=== PATIENT | male | born 1965 | race Caucasian/White ===

== ENCOUNTER 2017-06-26 11:40 | Emergency (ER) | payer OTHER ==
[~2017-06-26] VITALS: Ht 170.2 cm; Wt 72.6 kg
[~2017-06-26 11:40] MED LIST: BACTRIM DS TAB1 EACH PO; HYDROCODON-ACE1 EAC7 PO; KEFLEX500 MG PO; NOHOMEMEDICATIONS; PERCOCET 5-3251 EACH PO
[2017-06-26 12:33] LABS: INFLUENZA A ANTIGEN None Detected (None Detect); INFLUENZA B ANTIGEN None Detected (None Detect)
[2017-06-26 12:33] LABS: ABSOLUTE BASOPHILS 0.1 thou/uL (0.0-0.2); ABSOLUTE EOSINOPHILS 0.4 thou/uL (0.0-0.7); ABSOLUTE LYMPHOCYTES 1.5 thou/uL (0.8-5.3); ABSOLUTE MONOCYTES 0.5 thou/uL (0.0-1.2); ABSOLUTE NEUTROPHILS 5.9 thou/uL (1.6-8.1); HEMOGLOBIN 14.2 gm/dL (14.0-18.0); LYMPHOCYTES 17.6 %; MCH 30.8 pg (26.0-34.0); MCHC 33.8 g/dL (28.0-37.0); MONOCYTES 6.4 %; MPV 8.5 fl. (7.2-11.1); NUCLEATED RBCS 0 /100WBC; PLATELET COUNT* 184 thou/uL (150-400); RBC 4.61 mil/uL (4.50-6.00); RDW-CV 13.4 % (10.5-14.5); WBC 8.4 thou/uL (4.0-11.0)
[2017-06-26 12:40] LABS: ANION GAP 4 mmol/L (7-16); BUN 17 mg/dL (7-18); CALCIUM 9.2 mg/dL (8.5-10.1); CHLORIDE 104 mmol/L (98-107); CO2 32 mmol/L (21-32); CREATININE 1.1 mg/dL (0.6-1.3); GLUCOSE 115 mg/dL (70-99); POTASSIUM 4.2 mmol/L (3.5-5.1); SODIUM 140 mmol/L (136-145)
[2017-06-26 12:50] LABS: ALBUMIN 3.6 g/dL (3.4-5.0); ALKALINE PHOSPHATASE 72 U/L (46-116); LIPASE 137 U/L (73-393); NT-PRO BRAIN NAT PEPTIDE 41 pg/mL (<300); SGOT 25 U/L (15-37); SGPT 33 U/L (30-65); TOTAL BILIRUBIN 0.3 mg/dL (<0.1-1.0); TOTAL PROTEIN 7.5 g/dL (6.4-8.2); TROPONIN-I LEVEL <0.06 ng/mL (<0.06)
[2017-06-26] MEDS ORDERED: MEDROL DOSPAK21 TA1 PO (13:02)
[2017-06-26] MEDS ORDERED: AZITHROMYCIN 2250 MG PO (13:02)
[2017-06-26] MEDS ORDERED: VENTOLIN HFA 1818 GM INH (13:02)
[2017-06-26 13:17] VITALS: BP 120/70
--- NOTE | 2017-06-27 16:21 | EKG ---
[place] [address] ELECTROCARDIOGRAM REPORT Name: EMILY CARO [id number] Admission: 06/26/17 Attend Phys: Discharge: 06/26/17 Date of : 63 Report #: [id number] THIS REPORT FOR: //name// [facility] ED Test Date: 2017-06-26 Test Time: 11:45:39 Pat Name: EMILY NASCIMENTONHILL Department: Room: Gender: M Transfer Clerk: : 1965 Requested By: Fredy Adhikari Order Number: [id number] MD: Leobardo Stahl Measurements Intervals [place] Rate: 90 P: MD: QRS: 6 QRSD: 96 T: 35 QT: 333 QTc: 408 Interpretive Statements Atrial fibrillation ST elev, probable normal early repol pattern No previous ECG available for comparison Electronically Signed On 06-27-2017 16:20:47 [employer] by Leobardo Stahl [email or web address] <ELECTRONICALLY SIGNED> By: Leobardo Stahl MD, [facility] 06/27/17 1620 1145 1145 Leobardo Stahl MD, FACC /EPI
== END 2017-06-26 13:18 | disposition home or self-care (01) ==
LOC: M.ERS 11:40
PROVIDERS: Emergency Medicine
DX: J40 Bronchitis, not specified as acute or chronic (principal); E78.00 Pure hypercholesterolemia, unspecified; F17.210 Nicotine dependence, cigarettes, uncomplicated; Z88.5 Allergy status to narcotic agent; Z88.0 Allergy status to penicillin